=== PATIENT | female | born 1935 | race Asian ===

== ENCOUNTER 2023-11-03 14:22 | Emergency (ER) | payer MEDICAID ==
[~2023-11-03] VITALS: Ht 160 cm; Wt 56.2 kg
[2023-11-03 15:19] VITALS: BP_SYST 163; PULSE 70; RESP 16; TEMP 97.5; O2SAT 98
[2023-11-03] MEDS: ACETAMINOPHEN 500 MG TABLET PO ONE (15:52)
[2023-11-03] MEDS: KETOROLAC TROMETHAMINE 15 MG VIAL IM ONE (15:55)
[2023-11-03] MEDS ORDERED: LIDOCAINE PATCH 5% 1 EA TP ONE (16:30)
[2023-11-03] MEDS ORDERED: LIDO1ADH22 TP (17:20)
[2023-11-03] MEDS ORDERED: CYCL10TA24 PO (17:20)
[2023-11-03] MEDS ORDERED: NAPR-1172 PO (17:20)
[2023-11-03] MEDS ORDERED: NEU300 PO (17:21)
[2023-11-03 17:33] VITALS: BP_SYST 163; PULSE 70; RESP 16; TEMP 97.5; O2SAT 98
== END 2023-11-03 17:34 | disposition home or self-care (01) ==
LOC: SED 14:22
DX: M54.32 Sciatica, left side (principal); M47.896 Other spondylosis, lumbar region; Z79.899 Other long term (current) drug therapy
CPT/HCPCS: 99283; 72100; 96372; J1885

== ENCOUNTER 2024-03-22 11:42 | Emergency (ER) | payer MEDICAID ==
[~2024-03-22] VITALS: Ht 157.5 cm; Wt 52.2 kg
[~2024-03-22 11:42] MED LIST: CYCL10TA24 PO; LIDO1ADH22 TP; NAPR-1172 PO; NEU300 PO
[2024-03-22 11:53] VITALS: BP_SYST 138; PULSE 80; RESP 17; TEMP 98.6; O2SAT 98
[2024-03-22] MEDS ORDERED: IBUPROFEN 800 MG TABLET PO ONE (12:00)
[2024-03-22 12:48] LABS: BILIRUBIN,URINE NEGATIVE (NEGATIVE); BLOOD, URINE 3+ (NEGATIVE); CLARITY/URINE CLEAR (CLEAR); COLOR,URINE YELLOW (YELLOW); GLUCOSE,URINE 3+ (NEGATIVE); KETONES,URINE NEGATIVE (NEGATIVE); LEUKOCYTE ESTERASE ,URINE NEGATIVE (NEGATIVE); NITRITE, URINE NEGATIVE (NEGATIVE); PROTEIN URINE NEGATIVE (NEGATIVE); UROBILINOGEN,URINE 0.2 (0.2-1.0)
[2024-03-22 12:48] LABS: INFLUENZA TYPE A Negative (NEGATIVE); INFLUENZA TYPE B NEGATIVE (NEGATIVE)
[2024-03-22 12:56] LABS: BACTERIA,URINE RARE /HPF (None Seen); WBC,URINE 0-3 /HPF (0-3)
[2024-03-22] MEDS: IPRATROPIUM BROM 0.5 MG/2.5 ML VIAL.NEB (ATROVENT) INH ONE (13:08)
[2024-03-22] MEDS: ALBUTEROL SULFATE 0.083% 2.5 MG/3 ML VIAL.NEB INH ONE (13:09)
[2024-03-22 13:12] LABS: BASOPHILS % (AUTO) 0.3 % (0.0-2.0); EOSINOPHILS % (AUTO) 0.4 % (0.0-4.0); HEMATOCRIT 33.6 % (36-48); HEMOGLOBIN 11.2 g/dL (12.0-16.0); LYMPHOCYTES # (AUTO) 2.1 K/uL (1.0-5.5); LYMPHOCYTES % (AUTO) 21.1 % (20.5-51.5); MEAN CORPUSCULAR HEMOGLOBIN 32 pg (27-31); MEAN CORPUSCULAR HGB CONC 33 % (32-36); MEAN CORPUSCULAR VOLUME 96 fL (79.0-98.0); MONOCYTES # (AUTO) 0.9 K/uL (0.0-1.0); MONOCYTES % (AUTO) 9.1 % (1.7-9.3); NEUTROPHILS # (AUTO) 6.9 K/uL (1.8-7.7); NEUTROPHILS % (AUTO) 69.1 % (40.0-70.0); PLATELET COUNT (AUTO) 169 K/uL (130-430); RED BLOOD CELL COUNT(AUTO) 3.52 MIL/uL (4.2-6.2); RED CELL DISTRIBUTION WIDTH 12.2 % (9.0-15.0)
[2024-03-22] MEDS ORDERED: ALBUTEROL SULFATE 0.083% 2.5 MG/3 ML VIAL.NEB INH ONE (13:13)
[2024-03-22 13:35] LABS: ALANINE AMINOTRANSFERASE 32 U/L (12-78); ALBUMIN 3.5 g/dL (3.4-4.8); ANION GAP 10 (5-15); ASPARTATE AMINOTRANSFERASE 15 U/L (10-37); CALCIUM 9.5 mg/dL (8.4-11.0); CARBON DIOXIDE 24 mmol/L (23-29); CHLORIDE 107 mmol/L (98-107); CREATININE 1.75 mg/dL (0.55-1.30); GLUCOSE 196 mg/dL (74-106); POTASSIUM 4.3 mmol/L (3.5-5.1); SODIUM SERUM 141 mmol/L (136-145); TOTAL BILIRUBIN 0.4 mg/dL (0.0-1.0); TOTAL PROTEIN, SERUM 7.3 g/dL (6.4-8.3); UREA NITROGEN, BLOOD 35 mg/dL (8-21)
[2024-03-22 13:37] LABS: BILIRUBIN,DIRECT 0.1 mg/dL (0.0-0.3)
[2024-03-22] MEDS: NACL 0.9% 1,000 ML IV ONE (14:06)
[2024-03-22] MEDS ORDERED: PRED20TA PO (15:28)
[2024-03-22] MEDS ORDERED: ALBMDI INH (15:29)
[2024-03-22 15:36] VITALS: BP_SYST 138; PULSE 80; RESP 17; TEMP 98.6; O2SAT 96
== END 2024-03-22 15:35 | disposition home or self-care (01) ==
LOC: SED 11:42
DX: J06.9 Acute upper respiratory infection, unspecified (principal); Z20.822 Contact with and (suspected) exposure to COVID-19; R53.1 Weakness; E11.9 Type 2 diabetes mellitus without complications; I10 Essential (primary) hypertension; Z79.899 Other long term (current) drug therapy; Z79.2 Long term (current) use of antibiotics
CPT/HCPCS: 99285; 96360; 71045; 87426; 80076; 80048; 81001; 85025; 87040; 87086; 84484; 36415; 93005; 94664; 82948; 83605; 87804 ×2; J7030; 81000; 81015; 94760